=== PATIENT | male | born 1945 | race Caucasian/White ===

== ENCOUNTER 2018-02-05 11:25 | Day surgery (SDC) | payer MEDICARE ==
[~2018-02-05 11:25] MED LIST: Buffered Lidocaine 0.9% SYRIN* 5 ML/SYR SYRINGE INTRADERM ONE
[2018-02-05] MEDS ORDERED: ceFAZolin 2 GM PREMIX (*) 2 GM/50 ML BAG IVPB ONE (11:58)
[2018-02-05] MEDS ORDERED: Buffered Lidocaine 0.9% SYRIN* 5 ML/SYR SYRINGE ONE (11:58)
[2018-02-05] MEDS ORDERED: Lidocaine 1% INJ* 10 MG/ML 30 ML SDV ONE (12:42)
[2018-02-05] MEDS ORDERED: fentaNYL* 50 MCG/ML 2 ML VIAL (100 MCG VIAL) ONE (12:44)
[2018-02-05] MEDS ORDERED: Midazolam* 1 MG/ML 2 ML VIAL (2 MG) ONE (12:44)
[2018-02-05] MEDS ORDERED: Propofol* 10 MG/ML 20 ML BTL IV PUSH ONE (12:46)
[2018-02-05] MEDS ORDERED: Ibuprofen TAB* 600 MG PO PRN (13:56)
[2018-02-05] MEDS ORDERED: Naloxone* 0.4 MG/ML 1 ML VIAL IV PRN (13:56)
--- NOTE | 2018-02-05 13:56 | BRIEFOPN ---
Brief Operative Note - Surgery Procedures: PREOP/POSTOP DX: POLYCYTHEMIA VERA PROC: POWERPORT PLACEMENT LEFT SUBCLAVIAN SURG: MECENAS ASSIST: NONE ANES: LOCAL/MAC; [facility] EBL: MIN IVF: LR SPEC: NONE DRAIN/COMPL: NONE COND: STABLE TO RR.
[2018-02-05 14:45] VITALS: BP 142/88
--- NOTE | 2018-02-05 14:57 | RAD ---
INDICATION: Central line placement COMPARISON: None FINDINGS: 9.4 seconds of fluoroscopy were provided for the surgical department. Fluoroscopic spot imaging of the chest were obtained for operative control and show left-sided central venous catheter placement. A follow-up chest x-ray is pending . CPT II Codes: G9500 (fluoro time doc)
--- NOTE | 2018-02-06 09:29 | OP ---
CC: Dr. Ivan Sanchez; Anna Talavera MD * DATE OF OPERATION: 02/05/18 - [facility] DATE OF : 47 SURGEON: Soham Arias MD BIOMECHANICAL ENGINEER: None. ANESTHESIOLOGIST: Dr. Clemens. ANESTHESIA: Local MAC. PRE-OP DIAGNOSIS: Polycythemia vera. POST-OP DIAGNOSIS: Polycythemia vera. OPERATIVE PROCEDURE: PowerPort placement, left subclavian vein. ESTIMATED BLOOD LOSS: Minimal. IV FLUIDS: Crystalloid. SPECIMEN: None. DRAINS: None. COMPLICATIONS: None. COUNTS: The instrument, needle, and sponge counts were correct. DESCRIPTION OF PROCEDURE: The patient was brought to the operating room and placed on the table supine. Sequential compression devices were placed in both lower extremities. He was positioned and padded appropriately and received intravenous sedation. The neck and chest were prepped and draped in the usual sterile fashion and time-out was performed. He did receive appropriate intravenous antibiotics. Local anesthetic was infiltrated into the skin and soft tissue for a left subclavian approach. The left subclavian vein was cannulated on first pass and the guidewire was placed under fluoroscopic guidance into the SVC atrial junction. Additional anesthetic was infiltrated in the left chest for the subcutaneous pocket and along the line of the proposed tunnel. The pocket was created after incising the skin transversely and then subcutaneous tissues were divided down to the pectoralis fascia with cautery and a flap was elevated inferior to this. The 9.6-Wolof PowerPort catheter was tunneled and then peel-away sheath and dilator were advanced over the guidewire into the superior vena cava under fluoroscopy. Dilator and wire were removed. The catheter was advanced into the superior vena cava-atrial junction and the positioning confirmed. The catheter was connected to the PowerPort after cutting it to a length of approximately 28 cm and the port was placed into the pocket. It was accessed, drawn and flushed easily. The port was secured in the pocket with a single suture of 2-0 Prolene. The port was flushed with heparinized saline and then the incisions were closed with 3-0 Vicryl for the subcutaneous tissues, 4-0 Monocryl for the skin. Steri-Strips were applied with dressings. The patient tolerated this procedure well and was transferred to the recovery room in stable condition. [id number]/[facility] #: [id number] RUDY
== END 2018-02-05 14:46 | disposition home or self-care (01) ==
LOC: OR 11:25
PROVIDERS: ATTEND Surgery
DX: D45 Polycythemia vera (principal); D69.6 Thrombocytopenia, unspecified; Z85.46 Personal history of malignant neoplasm of prostate; Z87.891 Personal history of nicotine dependence; E78.5 Hyperlipidemia, unspecified
CPT/HCPCS: 76000; C1788; J0690; J1642; J2250; J2704; J3010

== ENCOUNTER 2021-08-11 16:07 | Observation (INO) ==
[2021-08-11] MEDS ORDERED: Morphine 4 MG/ML VIAL (1 ml) IV ONE (16:14)
[2021-08-11] MEDS ORDERED: Magnesium Hydroxide LIQ 30 ML UDC PO PRN (18:38)
[2021-08-11] MEDS ORDERED: Ondansetron 4 mg VIAL 2 MG/ML 2 ml VIAL IV PRN (18:38)
[2021-08-11] MEDS ORDERED: Morphine 10 MG/ML VIAL (1 ml) IV PRN (18:41)
[2021-08-11 19:14] LABS: Rapid COVID-19 Molecular Undetected (Undetected)
[2021-08-11] MEDS: NS 0.9% 1000 ml BAG 1,000 ML IV SCH (20:34)
[2021-08-11] MEDS ORDERED: Heparin 5000 UNITS/ML 1 mL VIAL SUBCUT SCH (22:00)
[2021-08-11] MEDS: RUXOLITINIB 15 MG PO SCH (23:39)
[2021-08-12 06:18] LABS: ABS Lymphocytes 0.1 10^3/ul (1.0-4.8); ABS Neutrophils 7.1 10^3/ul (1.5-7.7); Eosinophil % 0.1 %; Hematocrit 32 % (42-52); Hemoglobin 10.8 g/dL (14.0-18.0); Lymphocyte % 1.3 %; Mean Corpuscular HGB Conc 34 g/dL (31-36); Mean Corpuscular Hemoglobin 34 pg (27-31); Mean Corpuscular Volume 100 fL (80-94); Mean Platelet Volume 6.9 fL (7.4-10.4); Platelet Count 229 10^3/uL (150-450); Red Blood Count 3.23 10^6 /uL (4.18-5.48); Red Cell Distribution Width 14 % (10-15); White Blood Count 8.1 10^3/uL (3.5-10.8)
[2021-08-12 06:47] LABS: Calcium 8.4 mg/dL (8.6-10.3); Potassium 4.5 mmol/L (3.5-5.0); eGFR CKD-EPI 75.3 (>60)
[2021-08-12 09:04] LABS: INR 1.07 (0.86-1.15)
[2021-08-12] MEDS: NS 0.9% 1000 ml BAG 1,000 ML IV SCH (09:18)
[2021-08-12] MEDS: RUXOLITINIB 15 MG PO SCH (09:19)
[2021-08-12] MEDS ORDERED: ceFAZolin 2 GM in NS PREMIX 2 GM/100 ML BAG IVPB ONE (16:23)
[2021-08-12] MEDS ORDERED: Bupivacaine 0.5% 50 ML MDV VIAL ONE (16:56)
[2021-08-12] MEDS ORDERED: Lidocaine 1% w EPI 1:100,000 MDV 20 ML VIAL ONE (16:56)
[2021-08-12] MEDS ORDERED: Midazolam 2 mg/2 ml VIAL 1 mg/ml 2 ml VIAL (2 mg) ONE (17:38)
[2021-08-12] MEDS ORDERED: fentaNYL 100 mcg/2 ml 50 MCG/ML VIAL ONE ×2 (17:38→18:41)
[2021-08-12] MEDS ORDERED: Phenylephrine 40 mcg/mL 10mL (400mcg) SYRINGE ONE (17:38)
[2021-08-12] MEDS ORDERED: Lidocaine 2% PF 5 ML VIAL ONE (17:38)
[2021-08-12] MEDS ORDERED: Propofol 10 MG/ML 20 ML BTL ONE (17:38)
[2021-08-12] MEDS ORDERED: Phenylephrine IV 10 MG/ML 1 ml VIAL ONE (17:43)
[2021-08-12] MEDS ORDERED: Ondansetron 4 mg VIAL 2 MG/ML 2 ml VIAL ONE (17:59)
[2021-08-12] MEDS ORDERED: Dexamethasone IV 4 MG/ML VIAL 1 ml VIAL ONE (17:59)
[2021-08-12] MEDS ORDERED: Naloxone 0.4 mg VIAL 0.4 mg/ml 1 ml VIAL IV PRN (19:03)
[2021-08-12] MEDS ORDERED: fentaNYL 100 mcg/2 ml 50 MCG/ML VIAL IV PRN (19:03)
[2021-08-12] MEDS ORDERED: DiMENhydriNATE IV 50 mg/ml 1 ml VIAL IV PUSH PRN (19:03)
[2021-08-12] MEDS ORDERED: Acetaminophen IV 1 GM/100ML 100 ML IV ONE (20:25)
[2021-08-13] MEDS: RUXOLITINIB 15 MG PO SCH ×3 (00:17→23:27)
[2021-08-13] MEDS: ceFAZolin 1 GM Q8H (ADVAN) IVPB SCH ×3 (02:05→19:08)
[2021-08-13 07:00] LABS: Hematocrit 23 % (42-52); Hemoglobin 7.8 g/dL (14.0-18.0); Mean Corpuscular HGB Conc 34 g/dL (31-36); Mean Corpuscular Hemoglobin 34 pg (27-31); Mean Corpuscular Volume 102 fL (80-94); Mean Platelet Volume 7.1 fL (7.4-10.4); Platelet Count 203 10^3/uL (150-450); Red Blood Count 2.29 10^6 /uL (4.18-5.48); Red Cell Distribution Width 14 % (10-15); White Blood Count 9.3 10^3/uL (3.5-10.8)
[2021-08-13 07:11] LABS: INR 1.26 (0.86-1.15)
[2021-08-13 07:16] LABS: Anion Gap 8 mmol/L (2-11); Blood Urea Nitrogen 30 mg/dL (6-24); CO2 Carbon Dioxide 22 mmol/L (22-32); Calcium 7.7 mg/dL (8.6-10.3); Chloride 109 mmol/L (101-111); Glucose 150 mg/dL (70-100); Potassium 4.7 mmol/L (3.5-5.0); Sodium 139 mmol/L (135-145); eGFR CKD-EPI 61.6 (>60)
[2021-08-13 08:00] LABS: % Iron Saturation 9 % (15-55); Iron 24 ug/dL (50-212); Total Iron Binding Capacity 265 mcg/dL (250-450); Transferrin 189 mg/dL (203-362); Unsaturated Iron Binding < 250 ug/dL
[2021-08-13 08:10] LABS: Ferritin 73.2 ng/mL (24-336)
[2021-08-13] MEDS ORDERED: Lactated Ringers 1000 ml BAG 1,000 ML IV ONE (10:09)
[2021-08-13] MEDS ORDERED: Enoxaparin 40 MG/0.4 ML SYR SUBCUT SCH (12:00)
[2021-08-13] MEDS ORDERED: Lidocaine 4% GEL 10 GM TUBE TOPICAL ONE (15:17)
[2021-08-13] MEDS ORDERED: Senna TAB 8.6 mg TAB PO PRN (18:25)
[2021-08-13 20:07] LABS: Hematocrit 23 % (42-52); Hemoglobin 7.8 g/dL (14.0-18.0)
[2021-08-13] MEDS: Polyethylene Glycol 3350 17 GM PACKET PO SCH (23:27)
[2021-08-14] MEDS: ceFAZolin 1 GM Q8H (ADVAN) IVPB SCH (01:55)
[2021-08-14 03:28] LABS: Hematocrit 26 % (42-52); Hemoglobin 8.6 g/dL (14.0-18.0)
[2021-08-14 03:42] LABS: Calcium 7.6 mg/dL (8.6-10.3); Potassium 3.8 mmol/L (3.5-5.0); eGFR CKD-EPI 90.2 (>60)
[2021-08-14 03:54] VITALS: BP 112/67
[2021-08-14 06:51] LABS: INR 1.16 (0.86-1.15)
[2021-08-14] MEDS: RUXOLITINIB 15 MG PO SCH (08:19)
[2021-08-14] MEDS: Polyethylene Glycol 3350 17 GM PACKET PO SCH (10:18)
== END 2021-08-14 10:50 ==
LOC: SSU 16:07 → EDHOLD 16:07 → ED 16:07 → SUATTDRO 18:38 → SSU 21:23 → PMRU 08-14 10:59
PROVIDERS: ADMIT Internal Medicine; ATTEND Internal Medicine

== ENCOUNTER 2021-08-11 18:38 | Inpatient (IN) ==
[2021-08-14] MEDS ORDERED: Senna TAB 8.6 mg TAB PO PRN (12:38)
[2021-08-14] MEDS ORDERED: Magnesium Hydroxide LIQ 30 ML UDC PO PRN (12:38)
[2021-08-14] MEDS: Enoxaparin 40 MG/0.4 ML SYR SUBCUT SCH (14:19)
[2021-08-14] MEDS: RUXOLITINIB 15 MG PO SCH (20:22)
[2021-08-15] MEDS: Aspirin EC 81 mg TAB.EC (enteric coated) PO SCH (08:58)
[2021-08-15] MEDS: RUXOLITINIB 15 MG PO SCH ×2 (09:00→19:45)
[2021-08-15] MEDS: Enoxaparin 40 MG/0.4 ML SYR SUBCUT SCH (13:15)
[2021-08-16 07:05] LABS: Hematocrit 25 % (42-52); Hemoglobin 8.3 g/dL (14.0-18.0); Mean Corpuscular HGB Conc 34 g/dL (31-36); Mean Corpuscular Hemoglobin 32 pg (27-31); Mean Corpuscular Volume 94 fL (80-94); Platelet Count 171 10^3/uL (150-450); Red Blood Count 2.62 10^6 /uL (4.18-5.48); Red Cell Distribution Width 19 % (10-15); White Blood Count 5.3 10^3/uL (3.5-10.8)
[2021-08-16 07:21] LABS: Albumin 3.1 g/dL (3.2-5.2); Albumin/Globulin Ratio 1.4 (1-3); Globulin 2.2 g/dL (2-4); Potassium 3.6 mmol/L (3.5-5.0); Total Bilirubin 0.7 mg/dL (0.2-1.0); Total Protein 5.3 g/dL (6.4-8.9); eGFR CKD-EPI 94.7 (>60)
[2021-08-16 08:28] LABS: ABS Eosinophils 0.1 10^3/ul (0-0.6); ABS Lymphocytes 0.1 10^3/ul (1.0-4.8); ABS Monocytes 0.6 10^3/ul (0-0.8); ABS Neutrophils 4.5 10^3/ul (1.5-7.7); ABS Nucleated RBC 0.1 10^3/ul; Eosinophil % 1.2 %; Lymphocyte % 1.1 %; Nucleated Red Blood Cells % 2.1
[2021-08-16] MEDS: Aspirin EC 81 mg TAB.EC (enteric coated) PO SCH (08:40)
[2021-08-16] MEDS: Enoxaparin 40 MG/0.4 ML SYR SUBCUT SCH (13:01)
[2021-08-16 14:50] LABS: Troponin I 0.11 ng/mL (<0.03)
[2021-08-16 18:07] LABS: Troponin I 0.08 ng/mL (<0.03)
[2021-08-16 20:27] LABS: Troponin I 0.07 ng/mL (<0.03)
[2021-08-17 00:01] LABS: Troponin I 0.08 ng/mL (<0.03)
[2021-08-17 05:39] LABS: Troponin I 0.05 ng/mL (<0.03)
[2021-08-17] MEDS: Aspirin EC 81 mg TAB.EC (enteric coated) PO SCH (09:25)
[2021-08-17 12:01] LABS: Cholesterol 127 mg/dL; HDL Cholesterol 35.5 mg/dL; LDL Cholesterol 67 mg/dL; Triglycerides 123 mg/dL
[2021-08-17] MEDS: Enoxaparin 40 MG/0.4 ML SYR SUBCUT SCH (13:10)
[2021-08-18 05:16] VITALS: BP 116/72
[2021-08-18] MEDS: Aspirin EC 81 mg TAB.EC (enteric coated) PO SCH (08:12)
[2021-08-18] MEDS: Enoxaparin 40 MG/0.4 ML SYR SUBCUT SCH (15:50)
== END 2021-08-18 16:10 | disposition short-term general hospital (02) | DRG 561 ==
LOC: PMRU 08-14 11:36 → MEDTELE 08-18 15:30
PROVIDERS: ADMIT Physical Medicine & Rehabilitation; ATTEND Physical Medicine & Rehabilitation

== ENCOUNTER 2021-08-18 14:03 | Inpatient (IN) ==
[2021-08-18] MEDS ORDERED: Senna TAB 8.6 mg TAB PO PRN (15:40)
[2021-08-18 16:38] LABS: Hematocrit 25 % (42-52); Hemoglobin 8.1 g/dL (14.0-18.0); Mean Corpuscular HGB Conc 33 g/dL (31-36); Mean Corpuscular Hemoglobin 31 pg (27-31); Mean Corpuscular Volume 95 fL (80-94); Mean Platelet Volume 7.1 fL (7.4-10.4); Platelet Count 203 10^3/uL (150-450); Red Cell Distribution Width 18 % (10-15)
[2021-08-18 16:53] LABS: Calcium 8.3 mg/dL (8.6-10.3); Potassium 4.2 mmol/L (3.5-5.0); eGFR CKD-EPI 91.8 (>60)
[2021-08-18 17:35] LABS: Polychromasia 2+
[2021-08-18 17:36] LABS: ABS Eosinophils 0.1 10^3/ul (0-0.6); ABS Lymphocytes 0.1 10^3/ul (1.0-4.8); ABS Monocytes 0.8 10^3/ul (0-0.8); ABS Nucleated RBC 0.1 10^3/ul; Eosinophil % 1.1 %; Lymphocyte % 2.1 %; Nucleated Red Blood Cells % 1.5
[2021-08-18] MEDS ORDERED: Furosemide 20 mg/2 ml IV VIAL IV SLOW PU ONE (17:37)
[2021-08-18 18:36] LABS: INR 1.01 (0.86-1.15)
[2021-08-18] MEDS: Magnesium Hydroxide LIQ 30 ML UDC PO SCH (20:41)
[2021-08-19] MEDS ORDERED: NS 0.9% 1000 ml BAG 1,000 ML IV SCH (05:00)
[2021-08-19 07:50] LABS: ABS Eosinophils 0.1 10^3/ul (0-0.6); ABS Lymphocytes 0.2 10^3/ul (1.0-4.8); ABS Monocytes 0.9 10^3/ul (0-0.8); ABS Neutrophils 5.5 10^3/ul (1.5-7.7); ABS Nucleated RBC 0.1 10^3/ul; Eosinophil % 1.7 %; Hematocrit 32 % (42-52); Hemoglobin 10.9 g/dL (14.0-18.0); Lymphocyte % 2.9 %; Mean Corpuscular HGB Conc 34 g/dL (31-36); Mean Corpuscular Hemoglobin 31 pg (27-31); Mean Corpuscular Volume 92 fL (80-94); Mean Platelet Volume 7.4 fL (7.4-10.4); Nucleated Red Blood Cells % 0.9; Platelet Count 197 10^3/uL (150-450); Red Cell Distribution Width 18 % (10-15); White Blood Count 6.8 10^3/uL (3.5-10.8)
[2021-08-19 08:06] LABS: Calcium 8.3 mg/dL (8.6-10.3); eGFR CKD-EPI 97.1 (>60)
[2021-08-19] MEDS ORDERED: VERAPAMIL 2.5 MG/ML 2 ML VIAL ** 5 mg/2 ml ONE (08:39)
[2021-08-19] MEDS ORDERED: fentaNYL 100 mcg/2 ml 50 MCG/ML VIAL ONE (08:39)
[2021-08-19] MEDS ORDERED: Midazolam 5 mg/5 ml VIAL 1 mg/ml 5 ml VIAL (5 mg) ONE (08:39)
[2021-08-19] MEDS ORDERED: Heparin 2 UNITS/ML 1000 mls 2,000 ML IV ONE (08:40)
[2021-08-19] MEDS ORDERED: Heparin 1,000 UNIT/ML 10 ml (10,000 UNITS) CATHLAB/DIALYSIS ONE (08:40)
[2021-08-19] MEDS ORDERED: nitroGLYCERIN DRIP 25,000 MCG/250 ML BTL ONE (08:40)
[2021-08-19] MEDS ORDERED: Iohexol 350 (CONTRAST) 200 ML MDV IV ONE (08:40)
[2021-08-19] MEDS ORDERED: Lidocaine 1% VIAL 10 MG/ML VIAL ONE (08:40)
[2021-08-19] MEDS: Aspirin EC 81 mg TAB.EC (enteric coated) PO SCH (09:02)
[2021-08-19] MEDS: Magnesium Hydroxide LIQ 30 ML UDC PO SCH ×2 (09:02→21:09)
[2021-08-19] MEDS ORDERED: Iohexol 350 (CONTRAST) 500 ML MDV IV ONE (15:30)
[2021-08-19] MEDS ORDERED: Enoxaparin 40 MG/0.4 ML SYR SUBCUT SCH (18:00)
[2021-08-20 06:09] LABS: Hematocrit 32 % (42-52); Hemoglobin 10.7 g/dL (14.0-18.0); Mean Corpuscular HGB Conc 34 g/dL (31-36); Mean Corpuscular Hemoglobin 31 pg (27-31); Mean Corpuscular Volume 93 fL (80-94); Mean Platelet Volume 7.4 fL (7.4-10.4); Platelet Count 202 10^3/uL (150-450); Red Blood Count 3.43 10^6 /uL (4.18-5.48); Red Cell Distribution Width 18 % (10-15)
[2021-08-20 06:23] LABS: Calcium 8.1 mg/dL (8.6-10.3); Potassium 4.2 mmol/L (3.5-5.0)
[2021-08-20 06:28] LABS: eGFR CKD-EPI 95.9 (>60)
[2021-08-20] MEDS: Magnesium Hydroxide LIQ 30 ML UDC PO SCH (10:18)
[2021-08-20] MEDS: Aspirin EC 81 mg TAB.EC (enteric coated) PO SCH (10:18)
[2021-08-20 11:50] VITALS: BP 118/47
== END 2021-08-20 16:09 | DRG 812 ==
LOC: MEDTELE → SUATTDRO 15:26 → PREINTOOBSV 16:03
PROVIDERS: ADMIT Internal Medicine; ATTEND Internal Medicine

== ENCOUNTER 2021-08-20 14:02 | Inpatient (IN) ==
[2021-08-20] MEDS ORDERED: Magnesium Hydroxide LIQ 30 ML UDC PO PRN (17:33)
[2021-08-20] MEDS ORDERED: Senna TAB 8.6 mg TAB PO PRN (17:33)
[2021-08-20] MEDS: Enoxaparin 40 MG/0.4 ML SYR SUBCUT SCH (18:43)
[2021-08-21 06:28] LABS: ABS Eosinophils 0.1 10^3/ul (0-0.6); ABS Lymphocytes 0.2 10^3/ul (1.0-4.8); ABS Monocytes 0.8 10^3/ul (0-0.8); ABS Neutrophils 6.1 10^3/ul (1.5-7.7); Eosinophil % 1.7 %; Hematocrit 31 % (42-52); Hemoglobin 10.6 g/dL (14.0-18.0); Lymphocyte % 2.3 %; Mean Corpuscular HGB Conc 34 g/dL (31-36); Mean Corpuscular Hemoglobin 32 pg (27-31); Mean Corpuscular Volume 92 fL (80-94); Mean Platelet Volume 7.1 fL (7.4-10.4); Nucleated Red Blood Cells % 0.2; Platelet Count 190 10^3/uL (150-450); Red Blood Count 3.36 10^6 /uL (4.18-5.48); Red Cell Distribution Width 18 % (10-15); White Blood Count 7.2 10^3/uL (3.5-10.8)
[2021-08-21 06:43] LABS: Albumin/Globulin Ratio 1.4 (1-3); Calcium 8.2 mg/dL (8.6-10.3); Globulin 2.2 g/dL (2-4); Potassium 4.1 mmol/L (3.5-5.0); Total Bilirubin 0.8 mg/dL (0.2-1.0); Total Protein 5.2 g/dL (6.4-8.9); eGFR CKD-EPI 95.1 (>60)
[2021-08-21] MEDS: Aspirin EC 81 mg TAB.EC (enteric coated) PO SCH (09:54)
[2021-08-21] MEDS: Enoxaparin 40 MG/0.4 ML SYR SUBCUT SCH (18:48)
[2021-08-22] MEDS: Aspirin EC 81 mg TAB.EC (enteric coated) PO SCH (07:40)
[2021-08-22] MEDS: Enoxaparin 40 MG/0.4 ML SYR SUBCUT SCH (17:11)
[2021-08-23 05:23] VITALS: BP 118/72
[2021-08-23] MEDS: Aspirin EC 81 mg TAB.EC (enteric coated) PO SCH (08:12)
== END 2021-08-23 15:00 | disposition home or self-care (01) | DRG 560 ==
LOC: PMRU 16:09
PROVIDERS: ADMIT Physical Medicine & Rehabilitation; ATTEND Physical Medicine & Rehabilitation

== ENCOUNTER 2023-01-29 08:58 | Observation (INO) ==
[2023-01-29] MEDS ORDERED: Lactated Ringers 1000 ml BAG 1,000 ML IV ONE ×2 (10:11→12:34)
[2023-01-29] MEDS ORDERED: cefTRIAXone 2 gm/50 mL D5W 2 GM/50 ML BAG IV ONE (10:11)
[2023-01-29 10:27] LABS: ABS Lymphocytes 0.1 10^3/uL (1.0-4.8); ABS Monocytes 0.9 10^3/uL (0.0-1.1); ABS Neutrophils 6.6 10^3/uL (1.5-7.6); Eosinophil % 0.1 %; Hematocrit 41.4 % (38-53); Hemoglobin 13.3 g/dL (13.2-16.3); Lymphocyte % 1.4 %; Mean Corpuscular Hemoglobin 27.1 pg (27-33); Mean Corpuscular Hgb Conc 32.1 g/dL (31-36); Mean Corpuscular Volume 84.3 fL (80-97); Mean Platelet Volume 7.8 fL (7.5-11.2); Platelet Count 191 10^3/uL (150-450); Red Cell Distribution Width 16.5 % (12-17); White Blood Count 7.7 10^3/uL (3.6-10.2)
[2023-01-29 11:08] LABS: Albumin 3.8 g/dL (3.2-5.2); Albumin/Globulin Ratio 1.7 (1-3); C Reactive Protein 4.44 mg/L (<8.01); Calcium 9.1 mg/dL (8.6-10.3); Creatinine, Serum 1.21 mg/dL (0.67-1.17); Globulin 2.2 g/dL (2-4); Potassium 4.4 mmol/L (3.5-5.0); Total Bilirubin 0.7 mg/dL (0.2-1.0); eGFR CKD-EPI 62.1 (>60)
[2023-01-29] MEDS ORDERED: Acetaminophen IV 1 GM/100ML 1,000 MG/100 ML BAG IV PRN (12:34)
[2023-01-29 12:36] LABS: Urine Appearance Cloudy; Urine Bilirubin Negative (Negative); Urine Blood 1+ (Negative); Urine Color Yellow; Urine Glucose Negative (Negative); Urine Ketones 1+ (Negative); Urine Nitrite Negative (Negative); Urine Protein 1+(30 mg/dL) (Negative); Urine Specific Gravity 1.029 (1.002-1.030); Urine Urobilinogen Negative (Negative)
[2023-01-29 12:38] LABS: Urine Bacteria Absent (Absent); Urine Red Blood Cell 3+(>10/hpf) (Absent); Urine Squamous Epithelial Cell Present (Absent); Urine White Blood Cell 2+(11-20/hpf) (Absent)
[2023-01-29] MEDS ORDERED: methylPREDNISolone SOD SUCC 40 mg/ml 1 ml VIAL IV SCH (16:00)
[2023-01-29] MEDS ORDERED: HYDROmorphone 1 MG/1 ML SYRINGE IV PRN (20:01)
[2023-01-29] MEDS ORDERED: Naloxone 0.4 mg VIAL 0.4 mg/ml 1 ml VIAL IV PRN (20:01)
[2023-01-29] MEDS ORDERED: Iohexol 180 (CONTRAST) 10 ML SDV IV ONE (21:32)
[2023-01-29] MEDS ORDERED: fentaNYL 100 mcg/2 ml 50 MCG/ML VIAL ONE ×2 (21:36→22:38)
[2023-01-29] MEDS ORDERED: Midazolam 2 mg/2 ml VIAL 1 mg/ml 2 ml VIAL (2 mg) ONE (21:36)
[2023-01-29] MEDS ORDERED: Acetaminophen IV 1 GM/100ML 1,000 MG/100 ML BAG IV ONE (22:32)
[2023-01-29] MEDS ORDERED: Phenylephrine 40 mcg/mL 10mL (400mcg) SYRINGE ONE (22:38)
[2023-01-29] MEDS ORDERED: Lidocaine 2% PF 5 ML VIAL ONE (22:38)
[2023-01-29] MEDS ORDERED: Dexamethasone IV 4 MG/ML VIAL 1 ml VIAL ONE (22:38)
[2023-01-29] MEDS ORDERED: Propofol 10 MG/ML 20 ML BTL ONE (22:38)
[2023-01-29] MEDS ORDERED: Ondansetron 4 mg VIAL 2 MG/ML 2 ml VIAL ONE (22:38)
[2023-01-30] MEDS ORDERED: NS 0.9% 1000 ml BAG 1,000 ML IV SCH (02:00)
[2023-01-30] MEDS ORDERED: cefTRIAXone 1 gm/50 mL D5W 1 GM/50 ML BAG IV SCH ×2 (07:30→12:00)
[2023-01-30 09:28] LABS: Calcium 7.9 mg/dL (8.6-10.3); Creatinine, Serum 1.08 mg/dL (0.67-1.17); Potassium 4.6 mmol/L (3.5-5.0); eGFR CKD-EPI 71.1 (>60)
[2023-01-30 11:35] VITALS: BP 93/51
[2023-01-30] MEDS ORDERED: Enoxaparin 40 MG/0.4 ML SYR SUBCUT SCH (13:00)
[2023-01-30] MEDS ORDERED: Aspirin EC 81 mg TAB.EC (enteric coated) PO SCH (21:00)
== END 2023-01-30 12:28 | disposition home or self-care (01) ==
LOC: ED 08:58 → EDHOLD 08:58 → MEDTELE 18:49
PROVIDERS: ADMIT Internal Medicine; ATTEND Internal Medicine